=== PATIENT | female | born 1945 | race Caucasian/White ===

== ENCOUNTER 2016-08-12 20:46 | Observation (INO) | payer MEDICARE, OTHER ==
[~2016-08-12] VITALS: Ht 160 cm; Wt 75.7 kg
--- NOTE | ~2016-08-12 | HP ---
PATIENT'S NAME: LOLIS SILVA [facility] AGE: 70 Y [address] ROOM: [place] [address] LOCATION: [facility] ADMIT DATE: 08/12/2016 History & Physical DISCHARGE DATE: 08/14/2016 FAMILY PHYSICIAN: Rain Burton MD ATTENDING PHYSICIAN: Roc Amaya DATE OF SERVICE: CHIEF COMPLAINT: Abnormal sensation. HISTORY OF PRESENT ILLNESS: The patient is a 70-year-old female with known history of atrial fib, who presented to the emergency department with bilateral upper arm numbness and tingling, and also tongue that felt swollen with a little bit of difficulty to speech. She states all this lasted about 15 seconds. She states now in the emergency department that she is able to talk normal and that her arms feel fine. She denies any chest pain, shortness of breath, fevers, chills, nausea, vomiting, headaches, or visual changes. PAST MEDICAL HISTORY: 1. Atrial fibrillation. 2. Hyperlipidemia. 3. Impaired fasting glucose. 4. Obstructive sleep apnea, on CPAP. 5. Osteoporosis. PAST SURGICAL HISTORY: 1. Appendectomy. 2. Cholecystectomy. 3. Colonoscopy. 4. DEXA scan. 5. Heart catheterization. ALLERGIES: NO KNOWN MEDICAL ALLERGIES. FAMILY HISTORY: Significant for liver cancer in maternal grandmother. Also, history of stroke in maternal grandfather and multiple sclerosis in son. SOCIAL HISTORY: The patient denies any tobacco, alcohol, or illicit drug use; and is currently and retired. PATIENT'S NAME: LOLIS SILVA [facility] AGE: 70 Y [address] ROOM: [id number] [place] [address] LOCATION: [facility] ADMIT DATE: 08/12/2016 History & Physical DISCHARGE DATE: 08/14/2016 FAMILY PHYSICIAN: Rain Burton MD ATTENDING PHYSICIAN: Roc Amaya REVIEW OF SYSTEMS: A complete review of systems obtained, pertinent positives and negatives as mentioned in the HPI. MEDICATIONS: Please see list. OBJECTIVE: VITAL SIGNS: Temperature 97.9, pulses 69, respirations 13, and blood pressure 101/52. GENERAL: The patient is alert and oriented, appears in no acute distress. HEENT: Head: Normocephalic and atraumatic. Eyes: Conjunctivae are clear. No scleral icterus. EOMI. PERRLA. Mouth: Oropharynx is grossly moist and patent. No lesion or exudates. No deviation of the tongue or swelling. NECK: Supple. No lymphadenopathy. HEART: Regular rate and rhythm. No murmurs to auscultation. ABDOMEN: Bowel sounds are present. Nontender. EXTREMITIES: No cyanosis, clubbing, or edema. VASCULAR: Pulses are +2 and equal bilaterally. SKIN: No rashes or lesions. LYMPHATICS: No lymphadenopathy. NEUROLOGIC: Cranial nerves II through XII grossly intact. Strength 5/5 and equal bilaterally in both upper and lower extremities. Sensation intact in upper and lower extremities. LABORATORY DATA: Labs were noted and within normal limits. CT of the head was within normal limits. Abnormality was slightly elevated glucose of 125. ASSESSMENT: 1. Numbness and tingling with altered speech. 2. Atrial fibrillation. 3. Hyperlipidemia. 4. Impaired fasting glucose. 5. Obstructive sleep apnea, on CPAP. 6. Osteoporosis. PLAN: At this time, we will admit the patient and do 2-hour neuro checks. We will have Neurology follow and likely Cardiology also. We will have Dr. Burton also follow. We will monitor on telemetry and continue her Pradaxa. We will also have her continue her home CPAP. Dr. Burton is to follow. PATIENT'S NAME: LOLIS SILVA [facility] AGE: 70 Y [address] ROOM: [place] [address] LOCATION: [facility] ADMIT DATE: 08/12/2016 History & Physical DISCHARGE DATE: 08/14/2016 FAMILY PHYSICIAN: Rain Burton MD ATTENDING PHYSICIAN: Roc Amaya MD ORIANA KUMAR/modl /[id number] D: 921 T: HISTORY & PHYSICAL
--- NOTE | ~2016-08-12 | ER ---
PATIENT'S NAME: LOLIS SILVA [facility] AGE: 70 Y [address] ROOM: [place] [address] LOCATION: [facility] ADMIT DATE: 08/12/2016 ER/Outpatient Report DISCHARGE DATE: FAMILY PHYSICIAN: Rain Burton MD ATTENDING PHYSICIAN: Roc Amaya Time of Arrival: 6 hours. Time Seen: 2126 hours. IDENTIFICATION: A 70-year-old female. CHIEF COMPLAINT: Illness. HISTORY OF PRESENT ILLNESS: The patient is a 70-year-old female who at approximately 2015 hours felt a strange feeling in her head and across her bilateral upper arms, tingling in her upper arms and tongue felt swollen and difficulty with her speech. The symptoms have almost completely resolved. She still feels a little fuzzy in her head, and her tongue still feels a little bit thick, but her speech is normal and she has no other symptoms at this time. She has no headache, no chest pain, no cough or shortness of breath. ALLERGIES: NO KNOWN DRUG ALLERGIES. CURRENT MEDICATIONS: 1. Centrum Silver daily. 2. Calcium twice daily. 3. Propafenone 225 mg 3 times daily. 4. Pradaxa 150 mg b.i.d. 5. Glucosamine 1 tablet twice daily. 6. Vitamin D3 2000 International Units daily. MEDICAL PROBLEMS: Atrial fibrillation, followed by Dr. Bermudez. SOCIAL HISTORY: The patient lives here in [place]. 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 Tobacco use, denies. Alcohol use, denies. Drug use, denies. FAMILY HISTORY: No pertinent family history identified. PATIENT'S NAME: LOLIS SILVA [facility] AGE: 70 Y [address] ROOM: [id number] [address] LOCATION: [facility] ADMIT DATE: 08/12/2016 ER/Outpatient Report DISCHARGE DATE: FAMILY PHYSICIAN: Rain Burton MD ATTENDING PHYSICIAN: Roc Amaya REVIEW OF SYSTEMS: All systems reviewed and negative other than what is noted in the HPI. PHYSICAL EXAMINATION: VITAL SIGNS: Height 5 feet 3 inches and weight 77.8 kg. Blood pressure 151/80, pulse 97, respirations 18, temperature 99, and saturations 95% on room air. GENERAL: A 70-year-old female, in no acute distress. HEENT: Head: Normocephalic, atraumatic. Eyes: Pupils equal and reactive to light and accommodation. Extraocular movements intact. Nose: Mucosa pink. No lesions. Mouth: No lesions. Pharynx benign. NECK: Supple. No lymphadenopathy. No carotid bruits. No nuchal rigidity. LUNGS: Clear to auscultation. HEART: Regular rate and rhythm. No murmur, rub, or gallop. ABDOMEN: Bowel sounds present. Soft, nondistended. No hepatosplenomegaly. No palpable masses. Nontender. SKIN: [place], warm, and dry. No lesions or rashes noted. NEURO: The patient is alert and oriented x4. Cranial nerves 2 through 12 grossly intact. Motor strength 5/5 throughout. Sensation is intact to light touch. NIH stroke scale score is 0. No lower extremity edema. No calf tenderness. DIAGNOSTIC DATA: Head CT, negative per Dr. Edwards, radiologist. Hemoglobin 14, hematocrit 42.4, platelets 351, white count 7.9, normal differential. INR 1.02. Sodium 143, potassium 3.8, chloride 111, CO2 24, BUN 18, creatinine 1.1, and blood sugar 125. Troponin I less than 0.040. UA: Specific gravity 1.015, pH 6, 2-5 white cells, 0-2 red cells, 0-2 epithelial cells, negative bacteria. EKG: Normal sinus rhythm at 91 beats per minute. No acute ST elevation or depression. Q-waves are present in lead III and F. No previous EKG available for comparison. IMPRESSION: 1. Transient ischemic attack. 2. History of atrial fibrillation, on chronic anticoagulation with Pradaxa. PLAN: For admission and observation, Neuro Trauma, per Dr. Amaya for Dr. Burton. The patient and her understand and agree, and all questions have been answered. FIDELIA HERNANDEZ MD PATIENT'S NAME: LOLIS SILVA [facility] AGE: 70 Y [address] ROOM: [place] [address] LOCATION: [facility] ADMIT DATE: 08/12/2016 ER/Outpatient Report DISCHARGE DATE: FAMILY PHYSICIAN: Rain Burton MD ATTENDING PHYSICIAN: Roc Amaya/shahla /[id number] d: 08/13/16 0013 t: 08/13/16 0310, OUTPATIENT REPORT
--- NOTE | ~2016-08-12 | ECHO ---
Transthoracic Echocardiography Report (TTE) Demographics Patient Name LOLIS SILVA Date of Study 08/13/2016 Patient Number [id number] Visit Number [id number] Date of 1945 Room Number [id number] Accession Number [id number] Gender Female Age 70 year(s) Referring Micheal Sanchez MD Building Code Administrator Brenda Strickland [facility], Physician RVT Physician Interpreting [place] Area Mechanic Physician Supervising Ordering Physician Micheal Sanchez MD, MD/MLP Nurse Stress Contracts Specialist Conclusions Contractility Score Summary Normal Left Ventricular contractility was noted. Summary The estimated left ventricular ejection fraction is 65%. Normal left ventricle size and function. Mild TR with normal pulmonary pressures. Procedure Type of Study TTE procedure:2D Echocardiogram. Procedure Date Date: 08/13/2016 Start: 10:09 AM Study Location: Inpatient Portable Technical Quality: Adequate visualization Indications:TIA. Appropriate Use Criteria: 9 Patient Status: Routine Contrast Medium: Bubble Study. HR: 72 bpm BP: 114/62 mmHg M-Mode/2D Measurements LV Diastolic Dimension: 4.52 cm LV Systolic Dimension: 2.08 cm LV Septum Diastolic: 0.65 cm LV PW Diastolic: 0.84 cm Cardiac Output: 3.5 l/min LA Dimension: 3.7 cm LVOT: 1.8 cm LVOT VTI: 19.1 cm RV Base: 2.55 cm LV Stroke volume: 48.58 ml RV Length: 5.84 cm TAPSE: 2.2 cm TDI-S': 11.4 cm/s Doppler Measurements AV Peak Velocity: 1.11 m/s MV Peak E-Wave: 1.02 m/s AV Peak Gradient: 4.93 mmHg MV Peak A-Wave: 0.74 m/s AV Mean Gradient: 3 mmHg MV E/A Ratio: 1.38 LVOT Peak Velocity: 0.96 m/s MV P1/2t: 51 msec TR Gradient:25.4 mmHg PV Peak Velocity: 0.93 m/s Estimated RAP:5 mmHg PV Peak Gradient: 3.47 mmHg Estimated RVSP: 30 mmHg Estimated PASP: 30.4 mmHg E' Septal Velocity: 0.06 m/s A' Septal Velocity: 0.09 m/s E' Lateral Velocity: 0.1 m/s A' Lateral Velocity: 0.08 m/s Findings Left Ventricle Normal left ventricle size and function. Right Ventricle Normal right ventricle structure and function. Left Atrium Normal left atrial size. Right Atrium Normal right atrial size. Mitral Valve Trivial mitral regurgitation by color Doppler. Aortic Valve Normal aortic valve structure and function. Tricuspid Valve Mild tricuspid regurgitation by color Doppler. Pulmonic Valve Normal pulmonic valve structure and function. Pericardial Effusion No evidence of pericardial effusion. Miscellaneous Visualized portions of the aortic root and ascending aorta appear normal in size. Pleural Effusion No evidence of pleural effusion. Contractility Score LV regional wall motion:(0-Non visualized 1-Normal 2-Hypokinesis 3-Akinesis 4-Dyskinesis 5-Aneurysm) Signature dtt: Aylin Cedeño dtd: 08/13/16 1009 Physician Self Edit
--- NOTE | ~2016-08-12 | ENPV ---
Carotid Duplex Study Demographics Patient Name LOLIS SILVA Date of Study 08/13/2016 Patient Number [id number] Gender Female Date of 1945 Age 70 Visit Number [id number] Height 63 Accession Number [id number] Weight 167 Referring Micheal Sanchez MD Interpreting Deni Gracia MD Physician Monique Sharp MD Physician Ordering Physician Micheal Sanchez MD Maintenance Service Supervisor Manual Tester Martin Bacon, [facility] Conclusions Summary Bilateral proximal internal carotid arteries have mild, 1-39%, stenosis by heterogeneous plaque. Bilateral vertebral arteries are antegrade. Procedure Type of Study: Cerebral:Carotid, Carotid Doppler Bilateral. Indications for Study:TIA. Appropriate Use Criteria:7 Patient Status:Routine. Study Location:Inpatient Portable. Technical Quality:Adequate visualization. Velocities are measured in cm/s ; Diameters are measured in cm Carotid Right Measurements Carotid Left Measurements + +--------+--------+ + + + +--------+ --------+ + + !Location !PSV !EDV !Angle !%Stenosis ! !Location !PSV ! EDV !Angle !%Stenosis ! + +--------+--------+ + + + +--------+ --------+ + + !Prox CCA !90 !23 !60 ! ! !Prox CCA !78 ! 21 !54 ! ! + +--------+--------+ + + + +--------+ --------+ + + !Dist CCA !75 !26 !60 ! ! !Dist CCA !80 ! 28 !60 ! ! + +--------+--------+ + + + +--------+ --------+ + + !Prox ICA !63 !12 !52 !1-39% ! !Prox ICA !76 ! 27 !60 !1-39% ! + +--------+--------+ + + + +--------+ --------+ + + !Dist ICA !76 !27 !46 ! ! !Dist ICA !66 ! 21 !50 ! ! + +--------+--------+ + + + +--------+ --------+ + + !Prox ECA !84 ! !56 ! ! !Prox ECA !78 ! !60 ! ! + +--------+--------+ + + + +--------+ --------+ + + !Vertebral !60 ! !60 ! ! !Vertebral !40 ! !60 ! ! + +--------+--------+ + + + +--------+ --------+ + + !Subclavian !83 ! ! ! ! !Subclavian !112 ! ! ! ! + +--------+--------+ + + + +--------+ --------+ + + - There is antegrade vertebral flow noted on the right side. - There is antegrade verte bral flow noted on the left side. - Add'l Measurements:ICAPSV/CCAPSV 0.84.ICAEDV/CCAEDV 1.19. - Add'l Measurements:ICAPS V/CCAPSV 0.98.ICAEDV/CCAEDV 1.3. Signature dtt: XIOMARA CLEMONS dtall: 08/13/16 0853 Physician Self Edit
--- NOTE | ~2016-08-12 | DS ---
PATIENT'S NAME: PRICILA SILVA [facility] AGE: 70 Y [address] ROOM: [id number] [place], [place] [address] LOCATION: GICU ADMIT DATE: 08/12/2016 Discharge Summary DISCHARGE DATE: 08/14/2016 FAMILY PHYSICIAN: Rain Burton MD ATTENDING PHYSICIAN: Roc Amaya PRINCIPAL DIAGNOSIS: Acute neurologic event, transient ischemic attack versus anxiety versus hypotensive episode. SUMMARY: Pricila is a 70-year-old female, who was admitted on 08/12/2016, for neurologic symptoms. See Dr. Amaya's H and P. Neurology and Cardiology consults were obtained. She underwent testing to include a CT of the head, MRI of the brain, echocardiogram, and carotid ultrasound. Tests have been negative except PFO was detected on the echocardiogram although the official report is still pending. She had complete resolution of neurologic symptoms. She has been neurologically intact and feeling back to normal. She has been on the monitor the whole time, showed no evidence of any arrhythmias. She is maintained on her home medications of propafenone and Pradaxa. At this time, she is stable and ready to go home. DISPOSITION: Pricila is dismissed on 08/14/2016, in improved condition. DISMISSAL MEDICATIONS: Her dismissal medications are exactly as she was admitted on which include: 1. Calcium carbonate 600 mg b.i.d. 2. Centrum Silver 1 daily. 3. Vitamin D3 of 2000 International Units daily. 4. Propafenone 225 mg t.i.d. 5. Pradaxa 150 mg b.i.d. 6. Glucosamine 500 mg b.i.d. FOLLOWUP: She will follow up with me in 8 days to recheck, 08/22/2016, sooner if problems. She knows to go to the emergency room if she starts having stroke symptoms once again such as hemiplegia and inability to talk. We assured her that if she has just minor symptoms to not worry about it. PROGNOSIS: Excellent. MD MILES CORBETT/lucianol PATIENT'S NAME: PRICILA SILVA [facility] AGE: 70 Y [address] ROOM: [place] [address] LOCATION: GICU ADMIT DATE: 08/12/2016 Discharge Summary DISCHARGE DATE: 08/14/2016 FAMILY PHYSICIAN: aRin Burton MD ATTENDING PHYSICIAN: Roc Amaya /[id number] d: 08/14/16 1209 t: 08/14/16 1428, DISCHARGE SUMMARY
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
--- NOTE | ~2016-08-12 | CON ---
PATIENT'S NAME: PRICILA ODONNELL [facility] AGE: 70 Y [address] [id number] [id number] LOCATION: GICU ADMIT DATE: 08/12/2016 Consultation DISCHARGE DATE: 08/14/2016 FAMILY PHYSICIAN: Rain Burton MD ATTENDING PHYSICIAN: Roc Amaya DATE OF CONSULTATION: 08/13/2016 REFERRING PHYSICIAN: Milton Crenshaw MD HISTORY OF PRESENT ILLNESS: Ms. Odonnell is a 70-year-old female patient who is otherwise healthy with a known history of atrial fibrillation on propafenone and Pradaxa. On the 12 of August at around 8 p.m., the patient stated that she experienced some sudden feeling of pressure in her head with some numbness and tingling that went down into her arms. She also briefly felt that her "tongue was thick." This lasted only a few minutes with the feeling in her tongue and her arms. She decided to come to the emergency room based upon her symmetric symptoms and her symptoms really resolved again after a few minutes. In the emergency room, she no longer had these symptoms, and her vital signs were essentially stable. At the time I saw the patient the next day upon her arrival here, she had already received both the CAT scan and an MRI, both of them were completely normal. Some mild white matter changes of age were seen on the MRI, but certainly, no evidence on MRI with diffusion of an ischemic event. Laboratory results including a complete metabolic panel as well as CBC were all within normal limits. Troponin was negative and her complete blood count was normal. Biggest issue brought out with Ms. Odonnell when I spoke to her is that she says that she is under immense stress due to her son who has multiple sclerosis, who says that she has watched him progressively gets worse "end- stage multiple sclerosis" where he can no longer take care of himself and has been in full nursing care. Her son is quite young in his 40s and developed multiple sclerosis in his 20s unfortunately. She says that she has had perhaps one event just like described that may have been associated with a panic type of an event, and I discussed this with her that this may have been a similar type of panic attack which is certainly understandable in light of the patient's described stress. The patient otherwise feels well. She denies having any significant prior medical history other than the atrial fibrillation. Today, carotid ultrasound was performed and preliminary was read to be as normal. She did have an echocardiogram which showed a very small PFO that was shown on the bubble study. Otherwise, her ejection fraction was completely normal. MEDICATIONS: At home include: 1. Propafenone 225 mg three times a day. 2. Pradaxa 150 mg twice a day. PATIENT'S NAME: PRICILA ODONNELL [facility] AGE: 70 Y [address] ROOM: [id number] [place], [place] [id number] LOCATION: GICU ADMIT DATE: 08/12/2016 Consultation DISCHARGE DATE: 08/14/2016 FAMILY PHYSICIAN: Rain Burton MD ATTENDING PHYSICIAN: Roc Amaya 3. Glucosamine supplement tablet twice daily. 4. Vitamin D2 1000 international units daily. ALLERGIES: SHE HAS NO KNOWN DRUG ALLERGIES. 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 Tobacco use, she denies. She denies any alcohol use. She denies any illicit drug use at all. PHYSICAL EXAMINATION: VITAL SIGNS: Pulse of 97, respirations 18, blood pressure 148/82, temperature is 99. GENERAL: This is a healthy-appearing 70-year-old female, in no acute distress. She is quite active and rambunctious, walking around in the room, anxious to leave the hospital. She is conversational and very polite. She looks to be in no acute distress. NEUROLOGIC: Exam is grossly normal with cranial nerves 2 through 12 intact. Her motor exam revealed 5/5 power in the upper and lower extremities proximally and distally. No evidence of any pronator drift. Rapid alternating hand movements are intact. Normal [id number] movements with no evidence of any dysmetria. Her gait is completely normal, narrow-based. Negative Romberg. IMPRESSION: The events the patient describes is probably non-neurologic in origin. The patient brought up to me that she is under stress associated with her son. So certainly with no evidence of any coronary issues or evidence of any uncontrolled arrhythmia, I would feel less likely to believe that this was a TIA. It sounds very much to me to be an acute anxiety stressor event. I believe that the patient really believes this to be the case. In general, reactive type of stress associated with panic attacks would be normal and not treated if the patient has a good medical insight into the nature of what is actually going on here. I told her in general that certain SSRI medications can be used for panic attacks if they become frequent, but I would not recommend them for an occasional event if they become pattern. I do want to thank Dr. Burton for allowing me to participate in the care of Ms. Pricila Odonnell on neurologic consultation. MD ALY CHRISTIANSON/shahla PATIENT'S NAME: PRICILA ODONNELL [facility] AGE: 70 Y [address] ROOM: [place] [address] LOCATION: [facility] ADMIT DATE: 08/12/2016 Consultation DISCHARGE DATE: 08/14/2016 FAMILY PHYSICIAN: Rain Burton MD ATTENDING PHYSICIAN: Roc Amaya /[id number] d: 08/24/16 0253 t: 08/28/16 1503, CONSULTATION REPORT
[2016-08-12 21:07] LABS: BASOPHIL # 0.1 K/uL (0.0-0.2); BASOPHIL % 0.6 %; EOSINOPHIL # 0.2 K/uL (0.0-0.5); EOSINOPHIL % 2.3 %; HEMATOCRIT 42.4 % (33.0-46.0); IMMATURE GRANULOCYTE % 0.3 %; LYMPHOCYTE # 2.5 K/uL (0.8-4.0); LYMPHOCYTE % 31.4 %; MONOCYTE # 0.7 K/uL (0.0-1.0); MONOCYTE % 9.1 %; MPV 8.8 fl (9.4-12.4); NEUTROPHIL # (ANC) 4.4 K/uL (1.8-7.8); NEUTROPHIL % 56.3 %; NRBC % 0 /100WBC (0-0.00); PLATELET COUNT 351 K/uL (150-450); RBC 4.51 M/uL (3.50-5.50); RDW-CV 12.7 % (11.9-14.6); WBC 7.9 K/uL (4.0-11.0)
[2016-08-12 21:16] LABS: INR - (THERAPEUTIC) 1.02 (0.92-1.07); PROTIME 10.7 SECONDS (9.8-11.4); PTT 36 SECONDS (25-32)
[2016-08-12 21:29] LABS: ALBUMIN 3.6 gm/dL (3.5-5.0); ANION GAP 11.8 (10.0-19.0); BLOOD UREA NITROGEN 18 mg/dL (6-24); CHLORIDE 111 mMol/L (96-110); CO2 24 mMol/L (22-32); CREATININE 1.1 mg/dL (0.5-1.1); ESTIMATED GFR (MDRD EQUATION) 49; PHOSPHORUS 2.6 mg/dL (2.5-4.9); POTASSIUM 3.8 mMol/L (3.7-5.1); SODIUM 143 mMol/L (135-145)
[2016-08-12 21:52] LABS: BILIRUBIN URINE NEGATIVE (NEGATIVE); BLOOD URINE 10 /UL (NEGATIVE); COLOR URINE YELLOW (YELLOW); GLUCOSE URINE NEGATIVE (NEGATIVE); KETONE URINE 5 mg/dL (NEGATIVE); LEUKOCYTES URINE 100 /UL (NEGATIVE); NITRITE URINE NEGATIVE (NEGATIVE); PROTEIN URINE NEGATIVE (NEGATIVE); SPEC GRAVITY URINE 1.015 (1.003-1.035); TURBIDITY URINE CLEAR (CLEAR); UROBILINOGEN URINE NORMAL (NORMAL)
[2016-08-12 22:01] LABS: BACTERIA URINE NEGATIVE (NEGATIVE); EPITHELIAL URINE 0-2 #/HPF (NEGATIVE); RBC URINE 0-2 #/HPF (NEGATIVE)
[2016-08-12] MEDS ORDERED: CENTRUM SILVER1 TAB PO (23:14)
[2016-08-12] MEDS ORDERED: CALCIUM CARBON600 MG PO (23:18)
[2016-08-12] MEDS ORDERED: PROPAFENONE HC225 MG PO (23:19)
[2016-08-12] MEDS ORDERED: PRADAXA150 MG PO (23:19)
[2016-08-12] MEDS ORDERED: GLUCOSAMINE HC500 MG PO (23:22)
[2016-08-12] MEDS ORDERED: VITAMIN D-32000 UNI1 PO (23:23)
--- NOTE | 2016-08-13 05:24 | NUR ---
Significant Event: Patient AOx3. NIHSS 0. No complaints of headaches. Ambulates at 1 assist. No pain medications given/ no complaints of pain. VSS. Room air, cpap at night. Regular diet, no bm this shift. Voids per bathroom. Afebrile. L)ankle has swollen, slightly reddened area. PIV x1 intact SL. Follow up: Neurology consult today.
--- NOTE | 2016-08-13 12:45 | NUR ---
Introduced self and role of care management to patient. Patient lives in [place] with her . Told her she is observation status and she says her told her that. She hopes to go home later today or tomorrow. She says she thinks they are getting close to some answers. Denies discharge needs at this time. Will follow.
--- NOTE | 2016-08-13 16:38 | NUR ---
Significant Event:Patient A/O X3. Denies N/T. Follows commands. Moves everything spontaneously. NIHSS 0. PERRLA. VSS. Afebrile. Room air with sats in the mid 90s. LS clear throughout. BS active X4. BM this shift. VOids per restroom. Regular diet. Pills whole with water. No apparent skin issues. R) hand PIV SLL. Echo, carotids, MRI , and therapy evaluation this shift. SBA. Denies pain. Pleasant and cooperative with cares. Follow up: Home tomorrow?
--- NOTE | 2016-08-14 05:05 | NUR ---
Significant Event: PATIENT IS ALERT AND ORIENTED X3. FOLLOWS COMMANDS. VSS. DENIES BAH, N/T, OR BLURRED VISION. PERRLA. EQUAL STRONG STRENGTH. NIHSS-0. SB-SR, 50-60'S. SBP ONE-TEEN'S. ROOM AIR, CPAP AT NOC-CLEAR. REGULAR DIET-TAKES PILLS WHOLE. LAST BM /-ACTIVE X4. L) ANKLE IS SWOLLEN AND SLIGHTLY RED- MD IS AWARE. R) HAND PIV-SL'D. UP WITH SBA. Follow up: POSSIBLE D/C TO HOME TODAY.
--- NOTE | 2016-08-14 14:41 | NUR ---
1210-08/14/16 PATIENT GIVEN DISCHARGE INSTRUCTIONS AND SCRIP (NO MEDICATIONS ORDERED). SHE IS AWARE OF HER FOLLOW UP MD APPOINTMENT ON AUGUST 22. RIGHT HAND PIV WAS D/C'D. PATIENT HAS GATHERED BELONGINGS (CLOTHES, BIPAP MACHINE, PURSE, PHONE) AND IS WAITING FOR HER TO PICK HER UP. PAPERWORK HAS BEEN SIGNED AND FINAL TELE STRIP CALLED FOR.
--- NOTE | 2016-08-14 14:45 | NUR ---
1230-08/14/16 PATIENT WAS WALKED FROM ROOM TO CAR BY RN.
== END 2016-08-14 12:30 | disposition disaster alternative care site (69) ==
LOC: GMED 20:46 → GICU 23:07
PROVIDERS: Family Medicine; ADMIT Family Medicine
DX: R20.0 Anesthesia of skin (principal); R47.89 Other speech disturbances; I48.0 Paroxysmal atrial fibrillation; E78.5 Hyperlipidemia, unspecified; G47.33 Obstructive sleep apnea (adult) (pediatric); M81.0 Age-related osteoporosis without current pathological fracture; F41.9 Anxiety disorder, unspecified; R73.01 Impaired fasting glucose; Z99.89 Dependence on other enabling machines and devices; Z90.49 Acquired absence of other specified parts of digestive tract; Z98.890 Other specified postprocedural states; Z79.01 Long term (current) use of anticoagulants; Z79.899 Other long term (current) drug therapy
CPT/HCPCS: G0378; G8978; G8979; G8980; G8987; G8988; G8989; G9162; G9163; G9164

== ENCOUNTER → 2016-08-12 | Outpatient (CLI) | payer MEDICARE, OTHER ==
[~2016-08-12] MED LIST: CALCIUM CARBON600 MG PO; CENTRUM SILVER1 TAB PO; GLUCOSAMINE HC500 MG PO; PRADAXA150 MG PO; PROPAFENONE HC225 MG PO; VITAMIN D-32000 UNI1 PO
== END | disposition disaster alternative care site (69) ==
LOC: GAMB 20:21
DX: T78.40XA Allergy, unspecified, initial encounter (principal); I48.2 Chronic atrial fibrillation; K14.8 Other diseases of tongue; R47.9 Unspecified speech disturbances; R00.1 Bradycardia, unspecified; Z79.899 Other long term (current) drug therapy
CPT/HCPCS: A0425; A0427